=== PATIENT | female | born 1980 | race American Indian/Alaskan Native ===

== ENCOUNTER 2017-07-24 13:11 | Emergency (ER) | payer SELFPAY ==
[2017-07-24 13:18] VITALS: RESP 16; TEMP 98.8; O2SAT 99
--- NOTE | 2017-07-24 13:30 | ED PDOC ---
HPI: Psych/Substance Abuse Time Seen by Provider: 07/24/17 13:15 Chief Complaint (Nursing): Psychiatric Evaluation Chief Complaint (Provider): Psychiatric Evaluation History Per: Patient History/Exam Limitations: no limitations Onset/Duration Of Symptoms: Days Current Symptoms Are (Timing): Still Present Additional Complaint(s): 36 y/o female with no significant pmhx, who presents to ED via BLS due to suicidal ideations. Patient states she has a 24 y/o and 15 y/o child and her youngest child's father recently . She also states her father approximately 1 year ago and she is feeling overwhelmed with the stress of being a single mom. Denies any current plan. PMD: None provided Past Medical History Reviewed: Historical Data, Nursing Documentation, Vital Signs Vital Signs: Last Vital Signs Temp 98.8 F 07/24/17 13:15 Pulse 95 H 07/24/17 13:15 Resp 16 07/24/17 13:15 BP 156/95 H 07/24/17 13:15 Pulse Ox 99 07/24/17 13:15 - Medical History PMH: Anemia, Gall Bladder Disease (LAP CHRIS 7 YRSAGO) - Surgical History Surgical History: Cholecystectomy - Family History Family History: States: Unknown Family Hx - Social History Current smoker - smoking cessation education provided: No Alcohol: None Drugs: Denies - Home Medications Home Medications: Ambulatory Orders Medication Instructions Recorded Erythromycin 0.5% [Erythromycin 3.5 gm OP Q4 #1 tube 02/23/13 0.5% Oint] traMADol [Ultram] 50 mg PO Q4 #15 tab 02/23/13 - Allergies Allergies/Adverse Reactions: Allergies Allergy/AdvReac Type Severity Reaction Status Date / Time No Known Allergies Allergy Verified 07/24/17 13:15 Review of Systems ROS Statement: Except As Marked, All Systems Reviewed And Found Negative Psych: Positive for: Suicidal ideation (no plan) Physical Exam - Reviewed Nursing Documentation Reviewed: Yes Vital Signs Reviewed: Yes - Physical Exam Appears: Positive for: Well, Non-toxic, No Acute Distress Head Exam: Positive for: ATRAUMATIC, NORMAL INSPECTION, NORMOCEPHALIC Skin: Positive for: Normal Color, Warm, DRY Eye Exam: Positive for: Normal appearance ENT: Positive for: Normal ENT Inspection Neck: Positive for: Normal, Painless ROM Cardiovascular/Chest: Positive for: Regular Rate, Rhythm Respiratory: Positive for: CNT, Normal Breath Sounds Back: Positive for: Normal Inspection Extremity: Positive for: Normal ROM Neurologic/Psych: Positive for: Alert, Oriented - ECG O2 Sat by Pulse Oximetry: 99 (RA) Pulse Ox Interpretation: Normal Medical Decision Making Medical Decision Makin:25 Plan: --Crisis evaluation --Reevaluation Pt was referred to [facility] at 1320. [phone] - Disposition from molding utility worker. Scribe Attestation: Documented by Clif Cool, acting as a scribe for Sandra Bush PA-C. Provider Scribe Attestation: All medical record entries made by the Scribe were at my direction and personally dictated by me. I have reviewed the chart and agree that the record accurately reflects my personal performance of the history, physical exam, medical decision making, and the department course for this patient. I have also personally directed, reviewed, and agree with the discharge instructions and disposition. Disposition - Clinical Impression Clinical Impression: Depression - Patient ED Disposition Is Patient to be Admitted: No Counseled Patient/Family Regarding: Diagnosis, Need For Followup - Disposition Referrals: [facility] [Outside] [facility] [Outside] Disposition: Routine/Home Disposition Time: 18:18 Condition: STABLE Instructions: Depression, Adult (DC) Forms: [employer] (E[place]ian)
[2017-07-24 18:49] VITALS: BP 134/80; PULSE 81
== END 2017-07-24 18:49 | disposition home or self-care (01) ==
LOC: H.ER 13:11
DX: F32.9 Major depressive disorder, single episode, unspecified (principal)